=== PATIENT | male | born 1950 | race Caucasian/White ===

== ENCOUNTER 2019-06-03 00:45 | Emergency (ER) | payer OTHER, MEDICARE ==
[~2019-06-03] VITALS: Ht 182.9 cm; Wt 103.4 kg
[~2019-06-03 00:45] MED LIST: Flomax0.4 MG PO
== END 2019-06-03 02:56 | disposition home or self-care (01) ==
LOC: ER 00:45
DX: R33.9 Retention of urine, unspecified (principal); J44.9 Chronic obstructive pulmonary disease, unspecified; F17.200 Nicotine dependence, unspecified, uncomplicated; Z79.899 Other long term (current) drug therapy
CPT/HCPCS: 51702; 99283-25

== ENCOUNTER 2019-12-30 02:14 | Emergency (ER) | payer OTHER, MEDICARE ==
[~2019-12-30] VITALS: Ht 180.3 cm; Wt 95.2 kg
[~2019-12-30 02:14] MED LIST changes: +ALBU90OI INH
== END 2019-12-30 03:50 | disposition home or self-care (01) ==
LOC: ER 02:14
DX: S60.051A Contusion of right little finger without damage to nail, initial encounter (principal); Z87.891 Personal history of nicotine dependence; W19.XXXA Unspecified fall, initial encounter
CPT/HCPCS: 73120; 99283-25

== ENCOUNTER 2020-01-28 22:51 | Emergency (ER) | payer OTHER, MEDICARE ==
[~2020-01-28] VITALS: Ht 185.4 cm; Wt 108.9 kg
== END 2020-01-29 00:15 | disposition home or self-care (01) ==
LOC: ER 22:51
DX: S09.90XA Unspecified injury of head, initial encounter (principal); F10.129 Alcohol abuse with intoxication, unspecified; J44.9 Chronic obstructive pulmonary disease, unspecified; Z87.891 Personal history of nicotine dependence; W01.0XXA Fall on same level from slipping, tripping and stumbling without subsequent striking against object, initial encounter; Y92.029 Unspecified place in mobile home as the place of occurrence of the external cause
CPT/HCPCS: 70450; 72125; 99284-25

== ENCOUNTER 2020-04-28 00:39 | Emergency (ER) | payer OTHER, MEDICARE ==
[~2020-04-28] VITALS: Ht 185.4 cm; Wt 95.2 kg
[2020-04-28 01:06] LABS: Source, Urine Catheter
[2020-04-28 01:08] LABS: Bilirubin, Urine Neg (Neg); Blood, Urine 5+ (Neg); Glucose Qualitative, Urine Neg (Neg); Ketones, Urine Neg (Neg); Leukocyte Esterase, Urine Neg (Neg); Nitrite, Urine Neg (Neg); Protein, Urine Neg (Neg); Urobilinogen, Urine NORM (Normal)
[2020-04-28 01:11] LABS: Appearance, Urine Clear (Clear); Color, Urine Yellow (P-Yellow)
[2020-04-28 01:16] LABS: Bacteria Few /hpf; Squamous Epithelial Cells Not Seen /hpf (Few); White Blood Cells, Urine 0-2 /hpf (0-5)
== END 2020-04-28 02:41 | disposition home or self-care (01) ==
LOC: ER 00:39
PROVIDERS: Emergency Medicine
DX: N13.9 Obstructive and reflux uropathy, unspecified (principal); J44.9 Chronic obstructive pulmonary disease, unspecified; F17.210 Nicotine dependence, cigarettes, uncomplicated
CPT/HCPCS: 51701; 81001; 99283-25

== ENCOUNTER 2020-07-02 19:08 | Emergency (ER) | payer OTHER, MEDICARE ==
[~2020-07-02] VITALS: Ht 182.9 cm; Wt 99.8 kg
== END 2020-07-02 20:09 | disposition home or self-care (01) ==
LOC: ER 19:08
DX: R33.9 Retention of urine, unspecified (principal); J44.9 Chronic obstructive pulmonary disease, unspecified; Z79.899 Other long term (current) drug therapy
CPT/HCPCS: 51702; 51798; 99283-25

== ENCOUNTER 2020-07-06 06:55 | Emergency (ER) | payer OTHER, MEDICARE ==
[~2020-07-06] VITALS: Ht 180.3 cm; Wt 104.3 kg
[2020-07-06] MEDS ORDERED: ALBU90OI INH (07:46)
== END 2020-07-06 07:57 | disposition home or self-care (01) ==
LOC: ER 06:55
DX: Z46.6 Encounter for fitting and adjustment of urinary device (principal); J44.9 Chronic obstructive pulmonary disease, unspecified; Z87.891 Personal history of nicotine dependence
CPT/HCPCS: 99283

== ENCOUNTER 2020-07-28 03:47 | Emergency (ER) | payer OTHER, MEDICARE ==
[~2020-07-28] VITALS: Ht 180.3 cm; Wt 99.8 kg
== END 2020-07-28 05:19 | disposition home or self-care (01) ==
LOC: ER 03:47
DX: R33.9 Retention of urine, unspecified (principal); J44.9 Chronic obstructive pulmonary disease, unspecified; Z79.899 Other long term (current) drug therapy; Z87.891 Personal history of nicotine dependence
CPT/HCPCS: 51702; 99282-25

== ENCOUNTER 2020-07-30 23:34 | Emergency (ER) | payer OTHER, MEDICARE ==
[~2020-07-30] VITALS: Ht 182.9 cm; Wt 104.3 kg
== END 2020-07-31 00:53 | disposition home or self-care (01) ==
LOC: ER 23:34
DX: R33.9 Retention of urine, unspecified (principal)
CPT/HCPCS: 99283

== ENCOUNTER 2020-09-12 23:05 | Emergency (ER) | payer OTHER, MEDICARE ==
[~2020-09-12] VITALS: Ht 180.3 cm; Wt 103.4 kg
[2020-09-13 00:19] LABS: BASOPHILS ABSOLUTE AUTO 0.05 K/mm3 (0.00-0.23); BASOPHILS PERCENT AUTO 1 % (0-2); EOSINOPHILS ABSOLUTE AUTO 0.19 K/mm3 (0.00-0.68); EOSINOPHILS PERCENT AUTO 2 % (0-6); Hematocrit 48.8 % (37.0-53.0); Hemoglobin 16.4 g/dL (13.5-17.5); IMMATURE GRAN ABSOLUTE AUTO 0.08 K/mm3 (0.00-0.10); IMMATURE GRAN PERCENT AUTO 1 % (0-1); LYMPHOCYTES ABSOLUTE AUTO 1.97 K/mm3 (0.84-5.20); LYMPHOCYTES PERCENT AUTO 22 % (21-46); MONOCYTES ABSOLUTE AUTO 1.01 K/mm3 (0.16-1.47); MONOCYTES PERCENT AUTO 11 % (4-13); Mean Corpuscular HGB 30.9 pg (26.0-34.0); Mean Corpuscular HGB Conc 33.6 g/dL (31.5-36.5); Mean Corpuscular Volume 92 fL (80-100); Mean Platelet Volume 10.3 fL (9.1-12.4); NEUTROPHILS ABSOLUTE AUTO 5.53 K/mm3 (1.96-9.15); NEUTROPHILS PERCENT AUTO 63 % (41-73); Platelet Count 234 K/mm3 (150-400); RDW Coefficient Variation 13.2 % (11.7-14.2); RDW Standard Deviation 44.7 fL (35.1-46.3); White Blood Cell Count 8.83 K/mm3 (4.00-11.30)
[2020-09-13 00:33] LABS: Alanine Aminotransfer (ALT/SGP 37 U/L (12-78); Albumin, Blood 3.7 g/dL (3.4-5.0); Albumin/Globulin Ratio 1.1 (0.8-1.8); Alk Phos 99 U/L (50-136); Anion Gap 6 mmol/L (6-16); Aspartate Aminotrans (AST/SGOT 17 U/L (12-37); Bilirubin, Total 0.9 mg/dL (0.1-1.0); Blood Urea Nitrogen 17 mg/dL (8-24); CO2, Blood 24 mmol/L (21-32); Calcium, Blood 8.6 mg/dL (8.5-10.1); Chloride, Blood 111 mmol/L (98-108); Creatinine, Blood 1.21 mg/dL (0.60-1.20); Globulin, Blood 3.5 g/dL (2.2-4.0); Glomerular Filtration Rate >60 (60-); Glucose, Blood 87 mg/dL (70-99); Potassium, Blood 3.4 mmol/L (3.5-5.5); Sodium, Blood 141 mmol/L (136-145); Total Protein, Blood 7.2 g/dL (6.4-8.2)
[2020-09-13] MEDS ORDERED: LOPE2C PO (01:32)
== END 2020-09-13 01:47 | disposition home or self-care (01) ==
LOC: ER 23:05
PROVIDERS: Emergency Medicine
DX: R19.7 Diarrhea, unspecified (principal); J44.9 Chronic obstructive pulmonary disease, unspecified; Z79.899 Other long term (current) drug therapy; Z87.891 Personal history of nicotine dependence
CPT/HCPCS: 36415; 80053; 83690; 85025; 99284; A9270; J7030

== ENCOUNTER 2020-09-15 18:16 | Emergency (ER) | payer OTHER, MEDICARE ==
[~2020-09-15] VITALS: Ht 180.3 cm; Wt 99.8 kg
[~2020-09-15 18:16] MED LIST changes: +LOPE2C PO
[2020-09-15] MEDS ORDERED: HYDCOR2.5C PR ×2 (18:34→18:38)
[2020-09-15] MEDS ORDERED: Triamcinolone A15 G3 TOP (18:41)
== END 2020-09-15 18:45 | disposition home or self-care (01) ==
LOC: ER 18:16
DX: L25.8 Unspecified contact dermatitis due to other agents (principal); J44.9 Chronic obstructive pulmonary disease, unspecified; Z87.891 Personal history of nicotine dependence; Z79.899 Other long term (current) drug therapy
CPT/HCPCS: 99282

== ENCOUNTER 2020-10-30 09:52 | Emergency (ER) | payer OTHER, MEDICARE ==
[~2020-10-30] VITALS: Ht 180.3 cm; Wt 102.1 kg
[~2020-10-30 09:52] MED LIST changes: +HYDCOR2.5C PR; +Triamcinolone A15 G3 TOP
[2020-10-30 11:04] LABS: Source, Urine Catheter
[2020-10-30 11:10] LABS: Appearance, Urine Clear (Clear); Bilirubin, Urine Neg (Neg); Blood, Urine 4+ (Neg); Color, Urine Yellow (P-Yellow); Glucose Qualitative, Urine Neg (Neg); Ketones, Urine 1+ (Neg); Leukocyte Esterase, Urine Neg (Neg); Nitrite, Urine Pos (Neg); Protein, Urine 1+ (Neg); Urobilinogen, Urine NORM (Normal)
[2020-10-30 11:25] LABS: Calcium, Ionized (POC) 1.09 mmol/L (1.10-1.46); Chloride (POC) 106 mmol/L (98-108); Creatinine (POC) 1.2 mg/dL (0.8-1.3); Glucose (ISTAT POC) 85 mg/dL (70-99); Hemoglobin (POC) 17.3 g/dL (13.5-17.5); Sodium (POC) 142 mmol/L (135-148); Total CO2 (POC) 23 mmol/L (21-32)
[2020-10-30 11:28] LABS: Bacteria Mod /hpf; Squamous Epithelial Cells Rare /hpf (Few)
[2020-10-30] MEDS ORDERED: Flomax0.4 MG PO (11:50)
== END 2020-10-30 12:00 | disposition home or self-care (01) ==
LOC: ER 09:52
PROVIDERS: Emergency Medicine
DX: R33.9 Retention of urine, unspecified (principal); J44.9 Chronic obstructive pulmonary disease, unspecified; Z87.891 Personal history of nicotine dependence; Z79.899 Other long term (current) drug therapy
CPT/HCPCS: 36415; 51702; 51798; 80047; 81001; 85014; 87077; 87086; 87186; 99283-25

== ENCOUNTER 2020-11-02 13:16 | Emergency (ER) | payer OTHER, MEDICARE ==
[~2020-11-02] VITALS: Ht 180.3 cm; Wt 102.1 kg
[2020-11-02 14:02] LABS: Source, Urine Catheter
[2020-11-02 14:26] LABS: Appearance, Urine Cloudy (Clear); Bilirubin, Urine Neg (Neg); Blood, Urine 5+ (Neg); Color, Urine Amber (P-Yellow); Glucose Qualitative, Urine Neg (Neg); Ketones, Urine 1+ (Neg); Leukocyte Esterase, Urine 3+ (Neg); Nitrite, Urine Pos (Neg); Protein, Urine 3+ (Neg); Specific Gravity, Urine 1.025 (1.003-1.022); Urobilinogen, Urine NORM (Normal)
[2020-11-02 14:33] LABS: Bacteria Many /hpf; Red Blood Cells, Urine 25-50 /hpf (0-2); Squamous Epithelial Cells Not Seen /hpf (Few)
[2020-11-02] MEDS ORDERED: CEPHALEXIN500 M2 PO (14:33)
[2020-11-02 14:34] LABS: Amorphous Light (0-Heavy); Calcium Oxalate Crystals Few /hpf; Mucus Mod (0-Heavy); Transitional Epithelial Cells Rare /hpf (0-Rare); Uric Acid Crystals Few /hpf; Yeast/Fungi Urine Few /hpf
== END 2020-11-02 14:54 | disposition home or self-care (01) ==
LOC: ER 13:16
PROVIDERS: Physician Assistant
DX: N40.0 Benign prostatic hyperplasia without lower urinary tract symptoms (principal); N39.0 Urinary tract infection, site not specified; J44.9 Chronic obstructive pulmonary disease, unspecified; Z79.899 Other long term (current) drug therapy; Z87.891 Personal history of nicotine dependence
CPT/HCPCS: 81001; 87077; 87086; 87186; 99283

== ENCOUNTER 2021-02-22 21:09 | Observation (INO) | payer OTHER ==
[~2021-02-22] VITALS: Ht 185.4 cm; Wt 98.6 kg
[~2021-02-22 21:09] MED LIST changes: +CEPHALEXIN500 M2 PO
[2021-02-22 21:43] LABS: BASOPHILS ABSOLUTE AUTO 0.02 K/mm3 (0.00-0.23); BASOPHILS PERCENT AUTO 0 % (0-2); EOSINOPHILS PERCENT AUTO 0 % (0-6); Hematocrit 50.6 % (37.0-53.0); Hemoglobin 17.4 g/dL (13.5-17.5); IMMATURE GRAN ABSOLUTE AUTO 0.06 K/mm3 (0.00-0.10); IMMATURE GRAN PERCENT AUTO 1 % (0-1); LYMPHOCYTES ABSOLUTE AUTO 0.84 K/mm3 (0.84-5.20); LYMPHOCYTES PERCENT AUTO 12 % (21-46); MONOCYTES PERCENT AUTO 8 % (4-13); Mean Corpuscular HGB 30.9 pg (26.0-34.0); Mean Corpuscular HGB Conc 34.4 g/dL (31.5-36.5); Mean Corpuscular Volume 90 fL (80-100); Mean Platelet Volume 12.1 fL (9.1-12.4); NEUTROPHILS ABSOLUTE AUTO 5.79 K/mm3 (1.96-9.15); NEUTROPHILS PERCENT AUTO 79 % (41-73); Platelet Count 138 K/mm3 (150-400); RDW Coefficient Variation 13.8 % (11.7-14.2); RDW Standard Deviation 45.9 fL (35.1-46.3); Red Blood Cell Count 5.64 M/mm3 (4.30-5.90); White Blood Cell Count 7.31 K/mm3 (4.00-11.30)
[2021-02-22 22:26] LABS: Albumin, Blood 2.8 g/dL (3.4-5.0); Albumin/Globulin Ratio 0.7 (0.8-1.8); Bun/Creatinine Ratio 17.1 (12.0-20.0); Calcium, Blood 8.6 mg/dL (8.5-10.1); Creatinine, Blood 1.4 mg/dL (0.60-1.20); Globulin, Blood 4.1 g/dL (2.2-4.0); Total Protein, Blood 6.9 g/dL (6.4-8.2); Troponin I 0.028 ng/mL (0.000-0.040)
[2021-02-22 22:50] LABS: Calcium, Ionized (POC) 1.06 mmol/L (1.10-1.46); Chloride (POC) 101 mmol/L (98-108); Creatinine (POC) 1.5 mg/dL (0.8-1.3); Glucose (ISTAT POC) 93 mg/dL (70-99); Hemoglobin (POC) 17.7 g/dL (13.5-17.5); Potassium (POC) 4.2 mmol/L (3.5-5.5); Sodium (POC) 136 mmol/L (135-148); Total CO2 (POC) 25 mmol/L (21-32)
[2021-02-22 23:06] LABS: Magnesium, Blood 2.1 mg/dL (1.6-2.4)
[2021-02-22 23:48] LABS: SARS-Cov-2 (COVID-19) PCR, MMC POSITIVE (NEGATIVE)
[2021-02-23 00:33] LABS: Source, Urine Clean Catch
[2021-02-23 00:37] LABS: Appearance, Urine Clear (Clear); Blood, Urine 4+ (Neg); Color, Urine Amber (P-Yellow); Glucose Qualitative, Urine Neg (Neg); Ketones, Urine 2+ (Neg); Leukocyte Esterase, Urine 1+ (Neg); Nitrite, Urine Neg (Neg); Protein, Urine 4+ (Neg); Specific Gravity, Urine 1.015 (1.003-1.022); Urobilinogen, Urine 2+ (Normal)
[2021-02-23 00:39] LABS: Bilirubin, Urine 1+ (Neg)
[2021-02-23 00:43] LABS: Bacteria Many /hpf; Red Blood Cells, Urine 0-2 /hpf (0-2); Squamous Epithelial Cells Not Seen /hpf (Few); WBC Cast 0-2 /lpf (0)
[2021-02-23 00:48] LABS: U Amphetamine Screen Not Detected; U Barbituate Screen Not Detected; U Benzodiazapine Screen Not Detected; U Buprenorphine Screen Not Detected; U Cannabinoids Screen Not Detected; U Cocaine Screen Not Detected; U Methadone Screen Not Detected; U Methamphetamine Screen Not Detected; U Opiates Screen Not Detected; U Oxycodone Screen Not Detected; U Phencyclidine Screen Not Detected; U Propoxyphene Screen Not Detected
[2021-02-23 00:58] LABS: Free Thyroxine 1.07 ng/dL (0.70-1.60); Thyroid Stimulating Hormone 2.15 uIU/mL (0.360-4.800); Triiodothyronine, Free 1.97 pg/mL (2.18-3.98)
[2021-02-23 01:44] LABS: C-Reactive Protein, High Sens. 26.8 mg/L (0.000-3.000)
[2021-02-23 02:28] LABS: BASOPHILS ABSOLUTE AUTO 0.02 K/mm3 (0.00-0.23); BASOPHILS PERCENT AUTO 0 % (0-2); EOSINOPHILS PERCENT AUTO 0 % (0-6); Hematocrit 49.5 % (37.0-53.0); Hemoglobin 16.7 g/dL (13.5-17.5); IMMATURE GRAN ABSOLUTE AUTO 0.07 K/mm3 (0.00-0.10); IMMATURE GRAN PERCENT AUTO 1 % (0-1); LYMPHOCYTES ABSOLUTE AUTO 0.83 K/mm3 (0.84-5.20); LYMPHOCYTES PERCENT AUTO 10 % (21-46); MONOCYTES ABSOLUTE AUTO 0.63 K/mm3 (0.16-1.47); MONOCYTES PERCENT AUTO 8 % (4-13); Mean Corpuscular HGB 30.8 pg (26.0-34.0); Mean Corpuscular HGB Conc 33.7 g/dL (31.5-36.5); Mean Corpuscular Volume 91 fL (80-100); Mean Platelet Volume 11.3 fL (9.1-12.4); NEUTROPHILS ABSOLUTE AUTO 6.51 K/mm3 (1.96-9.15); NEUTROPHILS PERCENT AUTO 81 % (41-73); Platelet Count 123 K/mm3 (150-400); RDW Coefficient Variation 13.9 % (11.7-14.2); RDW Standard Deviation 47.7 fL (35.1-46.3); Red Blood Cell Count 5.42 M/mm3 (4.30-5.90); White Blood Cell Count 8.06 K/mm3 (4.00-11.30)
[2021-02-23 02:44] LABS: Albumin, Blood 2.7 g/dL (3.4-5.0); Albumin/Globulin Ratio 0.7 (0.8-1.8); Bun/Creatinine Ratio 17.8 (12.0-20.0); Calcium, Blood 8.4 mg/dL (8.5-10.1); Creatinine, Blood 1.46 mg/dL (0.60-1.20); Globulin, Blood 3.8 g/dL (2.2-4.0); Potassium, Blood 3.4 mmol/L (3.5-5.5); Total Protein, Blood 6.5 g/dL (6.4-8.2)
--- NOTE | 2021-02-23 04:58 | NUR ---
PATIENT IS A NEW ADMIT FROM THE ED. SBA TRANSFER FROM [facility] TO BED. AXO X 4 ON 3L O2 NC AND RA BASELINE. PIV INTACT. TELEMETRY PLACED AND TECH REPORTS NSR 73. DENIES CHEST PAIN AND N/V. CARDIOLOGY CONSULTED IN ED. VSS WITH LOW GRADE TEMPERATURE. UNPRODUCTIVE COUGH ON ADMIT. CBG CHECKS X 2 DAILY FOR STEROIDS. PATIENT ORIENTED TO ROOM AND CALL LIGHT SYSTEM. REPORTS LIVES WITH SIGNIFICANT OTHER. CALL LIGHT IN REACH. BED IN LOWEST POSITION. WILL CONTINUE TO MONITOR UNTIL DAY SHIFT NURSE ASSUMES CARE.
--- NOTE | 2021-02-23 19:32 | NUR ---
Alert and oriented x3 , antonette to make needs known. Denies any pain, headache , dizziness or SOB. Used urinal at bedside. Continue on tele monitor , heart at 80.Echodiogram result indicates normal findings.NPO from midnight , no caffeine after dinner. One person assist with ADLs. Continue on 3L N/c , no respirtory distress noted. vital signs are stable. Cardiac consult was made and Dr Guadalupe have seen the patient this morning for ventricular tachy. Possible stress test and MPI in AM 02/24/21. Continue to monitor.
[2021-02-24 04:53] LABS: Hematocrit 49.7 % (37.0-53.0); Hemoglobin 16.8 g/dL (13.5-17.5); Mean Corpuscular HGB 30.5 pg (26.0-34.0); Mean Corpuscular HGB Conc 33.8 g/dL (31.5-36.5); Mean Corpuscular Volume 90 fL (80-100); Mean Platelet Volume 11.8 fL (9.1-12.4); Platelet Count 146 K/mm3 (150-400); RDW Coefficient Variation 13.9 % (11.7-14.2); RDW Standard Deviation 46.7 fL (35.1-46.3); Red Blood Cell Count 5.51 M/mm3 (4.30-5.90); White Blood Cell Count 8.82 K/mm3 (4.00-11.30)
[2021-02-24 05:15] LABS: Anion Gap 8 mmol/L (6-16); Blood Urea Nitrogen 31 mg/dL (8-24); Bun/Creatinine Ratio 27.2 (12.0-20.0); CO2, Blood 26 mmol/L (21-32); Calcium, Blood 8.9 mg/dL (8.5-10.1); Chloride, Blood 104 mmol/L (98-108); Creatinine, Blood 1.14 mg/dL (0.60-1.20); Glomerular Filtration Rate >60 (60-); Glucose, Blood 98 mg/dL (70-99); Magnesium, Blood 2.6 mg/dL (1.6-2.4); Potassium, Blood 3.5 mmol/L (3.5-5.5); Sodium, Blood 138 mmol/L (136-145)
--- NOTE | 2021-02-24 18:39 | NUR ---
Alert and oriented x3 , Continue on Remdesivir for COVID-19 PNA. C/O SOB , oxygen was removed at the time , oxygen was put at 4 L N/C , SP02 was 91% Denies headache , dizziness and chest pain. Vital signs are stable . continue on tele monitor with sinus rhythm at 90. Was NPO for stress test which came with no evidence of ischemia. One person assist with ADLS. Continue to monitor.
--- NOTE | 2021-02-25 05:43 | NUR ---
PATIENT ALERT AND RESPOSIVE. PATIENT IS ORIGINALLY ADMITTED FOR ARRYTHMIA WITH DYSPNEA, SOB FOR 2 WEEKS. PATIENT DENIES SOB OR NAUSEA AND VOMITING. PATIENT COMPLAINED OF HEADACH AND WAS MEDICATED WITH TYLENOL 650MG WITH GOOD EFFECT. PATIENT WAS ABLE TO USE THE BEDSIDE URINAL INDEPENDENTLY, VOIDED 400CC. PATIENT SLEPT WITH NO ISSUES. WILL CONTINUE TO MONITOR.
[2021-02-25] MEDS ORDERED: ASPI81CH PO (16:21)
[2021-02-25] MEDS ORDERED: Vitamin D1000 UNI1 PO (16:21)
[2021-02-25] MEDS ORDERED: DEXA6 PO (16:22)
[2021-02-25] MEDS ORDERED: XARELTO20 MG PO (16:22)
--- NOTE | 2021-02-25 17:00 | NUR ---
REVIEW D'C WITH PATIENT . AWARE NEEDS TO MAKE F/U APPT WITH PCP AT [facility] WITHIN ONE WEEK AND F/U W/CARDIOLOGY WITHIN 1 MONTH. REVIEW MEDS AND AWARE NEEDS TO START TOMORROW. AWARE IF FEELING WORSE TO COME BACK TO E.R. ANSWER ALL QUESTIONS. VERBALIZES UNDERSTANDING. IN W/C WITH [facility] OXYGEN TANK. AWARE NEEDS TO CALL [facility] TO GET OXYGEN AT HOME. [facility] RIDE HOME.
== END 2021-02-25 17:32 | disposition home health service (06) ==
LOC: ER 21:09 → MEDS 21:10
PROVIDERS: Emergency Medicine; Internal Medicine; ADMIT Hospitalist
DX: U07.1 COVID-19 (principal); J96.01 Acute respiratory failure with hypoxia; I48.0 Paroxysmal atrial fibrillation; I49.5 Sick sinus syndrome; N17.9 Acute kidney failure, unspecified; E66.9 Obesity, unspecified; N40.0 Benign prostatic hyperplasia without lower urinary tract symptoms; I47.2 Ventricular tachycardia; I44.7 Left bundle-branch block, unspecified; J44.9 Chronic obstructive pulmonary disease, unspecified; Z87.891 Personal history of nicotine dependence; Z96.642 Presence of left artificial hip joint; Z68.31 Body mass index [BMI] 31.0-31.9, adult
CPT/HCPCS: 36415; 71260; 78452; 80047; 80048; 80053; 81001; 82728; 82947; 83690; 83735; 84439; 84443; 84481; 84484; 85014; 85025; 85027; 85379; 86141; 87086; 93005; 93010; 93017; 93306; 94762; 96365; 96367; 99285-25; A9270; A9500; J0282; J0706; J1100; J1650; J2785; J3475; Q9967; U0004

== ENCOUNTER 2021-02-26 15:26 | Inpatient (IN) | payer OTHER ==
[~2021-02-26] VITALS: Ht 185.4 cm; Wt 101.2 kg
[~2021-02-26 15:26] MED LIST changes: +ASPI81CH PO; +DEXA6 PO; +Vitamin D1000 UNI1 PO; +XARELTO20 MG PO
[2021-02-26 17:00] LABS: Hematocrit 50.1 % (37.0-53.0); Mean Corpuscular HGB 30.2 pg (26.0-34.0); Mean Corpuscular HGB Conc 33.9 g/dL (31.5-36.5); Mean Corpuscular Volume 89 fL (80-100); Mean Platelet Volume 10.9 fL (9.1-12.4); Platelet Count 289 K/mm3 (150-400); RDW Standard Deviation 46.3 fL (35.1-46.3); Red Blood Cell Count 5.62 M/mm3 (4.30-5.90); White Blood Cell Count 8.52 K/mm3 (4.00-11.30)
[2021-02-26 17:18] LABS: Anion Gap 9 mmol/L (6-16); Blood Urea Nitrogen 35 mg/dL (8-24); Bun/Creatinine Ratio 34.7 (12.0-20.0); CO2, Blood 27 mmol/L (21-32); Calcium, Blood 8.9 mg/dL (8.5-10.1); Chloride, Blood 102 mmol/L (98-108); Creatinine, Blood 1.01 mg/dL (0.60-1.20); Glomerular Filtration Rate >60 (60-); Glucose, Blood 97 mg/dL (70-99); Potassium, Blood 3.7 mmol/L (3.5-5.5); Sodium, Blood 138 mmol/L (136-145)
[2021-02-26 17:26] LABS: BASOPHILS PERCENT MAN 0 % (0-2); EOSINOPHILS PERCENT MAN 0 % (0-6); LYMPHOCYTES % ATYPICAL MANUAL 3 % (0-0); LYMPHOCYTES ABSOLUTE MAN 0.68 K/mm3 (0.84-5.20); LYMPHOCYTES PERCENT MAN 5 % (21-46); MONOCYTES ABSOLUTE MAN 0.08 K/mm3 (0.16-1.47); MONOCYTES PERCENT MAN 1 % (4-13); NEUTROPHILS ABSOLUTE MAN 7.49 K/mm3 (1.96-9.15); PLASMA CELL ABSOLUTE MAN 0.25 K/mm3 (0.00-0.00); PLASMA CELLS PERCENT MAN 3 % (0-0); SEG NEUTROPHILS PERCENT MAN 88 % (41-73); TOTAL CELLS COUNTED 100
[2021-02-26 18:21] LABS: Albumin, Blood 2.1 g/dL (3.4-5.0); Albumin/Globulin Ratio 0.5 (0.8-1.8); Bilirubin, Direct 0.1 mg/dL (0.0-0.3); Bilirubin, Total 1.1 mg/dL (0.1-1.0); Globulin, Blood 4.5 g/dL (2.2-4.0); Total Protein, Blood 6.6 g/dL (6.4-8.2)
--- NOTE | 2021-02-27 01:42 | NUR ---
ADMISSION: RECEIVED PT FROM ER VIA STRETCHER AAOX3. SOB ON EXERTION. O2 4 L VIA NC IN PLACE. PT C/O OF WEAKNESS. SR ON TELE. SAT 93%. ORIENTED PT TO ROOM, CALL LIGHT, AND SURROUNDINGS. ATE SNACK AND TOLERATED WELL. VSS. WILL CONTINUE TO MONITOR.
--- NOTE | 2021-02-27 02:45 | NUR ---
UPDATED DR. SPICER ON PT'S ABG RESULTS, ALSO INFORMED OF RT'S RECOMMENDATION TO KEEP PT ON 100% FIO2 ON AIRVO. NO NEW ORDERS RECEIVED. CONTINUE TO MONITOR.
--- NOTE | 2021-02-27 04:18 | NUR ---
PT IS AAOX3. SR ON TELE. SAT 92% ON 4L NC ON ARRIVAL TO FLOOR. REMAINS SOB ON EXERTION. DESAT TO 86 DURING SLEEP. O2 INCREASED TO 5L. ENCOURAGED DEEP BREATHING AND REPOSITIONING. RESTING IN BED WITHOUT DISTRESS. SAT @ 93%; HR 76 ON MONITOR.
[2021-02-27 05:11] LABS: BASOPHILS ABSOLUTE AUTO 0.06 K/mm3 (0.00-0.23); BASOPHILS PERCENT AUTO 1 % (0-2); EOSINOPHILS ABSOLUTE AUTO 0.02 K/mm3 (0.00-0.68); EOSINOPHILS PERCENT AUTO 0 % (0-6); Hematocrit 48.4 % (37.0-53.0); Hemoglobin 15.9 g/dL (13.5-17.5); Mean Corpuscular HGB 30.3 pg (26.0-34.0); Mean Corpuscular HGB Conc 32.9 g/dL (31.5-36.5); Mean Corpuscular Volume 92 fL (80-100); Mean Platelet Volume 10.8 fL (9.1-12.4); Platelet Count 249 K/mm3 (150-400); RDW Coefficient Variation 14.1 % (11.7-14.2); RDW Standard Deviation 48.1 fL (35.1-46.3); Red Blood Cell Count 5.24 M/mm3 (4.30-5.90); White Blood Cell Count 6.82 K/mm3 (4.00-11.30)
[2021-02-27 05:15] LABS: IMMATURE GRAN ABSOLUTE AUTO 0.12 K/mm3 (0.00-0.10); IMMATURE GRAN PERCENT AUTO 2 % (0-1); LYMPHOCYTES ABSOLUTE AUTO 0.46 K/mm3 (0.84-5.20); LYMPHOCYTES PERCENT AUTO 7 % (21-46); MONOCYTES ABSOLUTE AUTO 0.28 K/mm3 (0.16-1.47); MONOCYTES PERCENT AUTO 4 % (4-13); NEUTROPHILS ABSOLUTE AUTO 5.88 K/mm3 (1.96-9.15); NEUTROPHILS PERCENT AUTO 86 % (41-73)
[2021-02-27 05:33] LABS: BAND PERCENT MAN 1 % (0-8); BASOPHILS PERCENT MAN 0 % (0-2); EOSINOPHILS PERCENT MAN 0 % (0-6); LYMPHOCYTES ABSOLUTE MAN 0.27 K/mm3 (0.84-5.20); LYMPHOCYTES PERCENT MAN 4 % (21-46); MONOCYTES ABSOLUTE MAN 0.34 K/mm3 (0.16-1.47); MONOCYTES PERCENT MAN 5 % (4-13); MYELOCYTE ABSOLUTE MAN 0.06 K/mm3 (0.00-0.00); MYELOCYTE PERCENT MAN 1 % (0-0); NEUTROPHILS ABSOLUTE MAN 6.06 K/mm3 (1.96-9.15); PLASMA CELL ABSOLUTE MAN 0.06 K/mm3 (0.00-0.00); PLASMA CELLS PERCENT MAN 1 % (0-0); SEG NEUTROPHILS PERCENT MAN 88 % (41-73); TOTAL CELLS COUNTED 100
[2021-02-27 05:59] LABS: Alanine Aminotransfer (ALT/SGP 46 U/L (12-78); Albumin, Blood 1.8 g/dL (3.4-5.0); Albumin/Globulin Ratio 0.4 (0.8-1.8); Alk Phos 76 U/L (50-136); Anion Gap 10 mmol/L (6-16); Aspartate Aminotrans (AST/SGOT 59 U/L (12-37); Bilirubin, Total 0.9 mg/dL (0.1-1.0); Blood Urea Nitrogen 30 mg/dL (8-24); Bun/Creatinine Ratio 35.2 (12.0-20.0); CO2, Blood 22 mmol/L (21-32); Calcium, Blood 8.4 mg/dL (8.5-10.1); Chloride, Blood 106 mmol/L (98-108); Creatinine, Blood 0.85 mg/dL (0.60-1.20); Globulin, Blood 4.3 g/dL (2.2-4.0); Glomerular Filtration Rate >60 (60-); Glucose, Blood 129 mg/dL (70-99); Potassium, Blood 4.2 mmol/L (3.5-5.5); Sodium, Blood 138 mmol/L (136-145); Total Protein, Blood 6.1 g/dL (6.4-8.2)
--- NOTE | 2021-02-27 17:52 | NUR ---
SHIFT SUMMARY PT IS UP IN BED ON 5L NASAL CANNULA WITH 10L NON-REBREATHER NEEDED OVER NC FOR MOUTH BREATHING. SATS ARE 93% WHEN NOT EATING. PT HAS SOME DESATTING WITH EATING AND ACTIVITY THAT IS MANAGED WITH USE ON NON-REBREATHER. PT HAS HAD NO COMPLAINTS TODAY AND NO ACUTE CHANGES. WILL CONTINUE TO MONITOR.
--- NOTE | 2021-02-27 19:05 | NUR ---
ASSUMED CARE RECEIVED REPORT FROM SHABANA REED. PT RESTING, IN NAD. NO ACUTE CONCERNS ASSESSED AT THIS TIME. CALL LIGHT, POSSESSIONS IN REACH, BED IN LOW AND LOCKED POSITION.
--- NOTE | 2021-02-27 23:24 | NUR ---
SPOKE TO DR. CORTES REGARDING PT'S INCREASED O2 NEEDS. ORDERS RECEIVED. CONTINUE TO MONITOR.
--- NOTE | 2021-02-28 02:40 | NUR ---
DR. SPICER INFORMED OF PT'S INCREASED ANXIETY, AND INCREASING SOB ON EXERTION. ORDERS RECEIVED. WILL UPDATE PROVIDER WITH ABG RESULTS WHEN AVAILABLE.
[2021-02-28 02:51] LABS: PCO2 Arterial 31.2 mmHg (35-45); PO2 Arterial 70.7 mmHg (80-100); pH Blood Arterial 7.51 (7.35-7.45)
--- NOTE | 2021-02-28 03:10 | NUR ---
UPDATED DR. SPICER ON PT'S ABG RESULTS. NO NEW ORDERS RECEIVED.
--- NOTE | 2021-02-28 04:43 | NUR ---
DR. SPICER NOTIFIED OF PT'S CONTINUED ANXIETY, CONTINUED REMOVAL OF AIRVO AND PICKING AT NICOLE CATHETER. ORDERS RECEIVED AND PT PLACED ON REMOTE CAMERA MONITORING.
--- NOTE | 2021-02-28 07:24 | NUR ---
SHIFT SUMMARY PT APPEARS TO BE RESTING COMFORTABLY, O2 SATS AVERAGING IN THE MID 90'S. PT APPEARED RESTLESS T/O NIGHT, STATING "I CAN'T DO THIS." PROVIDED REASSURANCE AND ACTIVE LISTENING; MEDICATED FOR ANXIETY PER ORDERS. PT APPEARS MORE AT EASE AT THIS TIME. NO OTHER ACUTE CONCERNS NOTED CURRENTLY. NO ACUTE NEEDS ASSESSED. VS REVIEWED, PT FEBRILE, TREATED PER EMAR WITH GOOD EFFECT; OTHER VS WNL. NO ACUTE NEEDS ASSESSED AT THIS TIME. CALL LIGHT, POSSESSIONS IN REACH. RESTRAINTS IN PLACE.
[2021-02-28 07:46] LABS: BASOPHILS ABSOLUTE AUTO 0.05 K/mm3 (0.00-0.23); BASOPHILS PERCENT AUTO 1 % (0-2); EOSINOPHILS PERCENT AUTO 0 % (0-6); Hematocrit 44.2 % (37.0-53.0); Hemoglobin 14.9 g/dL (13.5-17.5); IMMATURE GRAN ABSOLUTE AUTO 0.32 K/mm3 (0.00-0.10); IMMATURE GRAN PERCENT AUTO 4 % (0-1); LYMPHOCYTES ABSOLUTE AUTO 0.32 K/mm3 (0.84-5.20); LYMPHOCYTES PERCENT AUTO 4 % (21-46); MONOCYTES ABSOLUTE AUTO 0.18 K/mm3 (0.16-1.47); MONOCYTES PERCENT AUTO 2 % (4-13); Mean Corpuscular HGB 30.3 pg (26.0-34.0); Mean Corpuscular HGB Conc 33.7 g/dL (31.5-36.5); Mean Corpuscular Volume 90 fL (80-100); Mean Platelet Volume 10.7 fL (9.1-12.4); NEUTROPHILS ABSOLUTE AUTO 7.75 K/mm3 (1.96-9.15); NEUTROPHILS PERCENT AUTO 90 % (41-73); Platelet Count 286 K/mm3 (150-400); RDW Coefficient Variation 14.1 % (11.7-14.2); RDW Standard Deviation 46.8 fL (35.1-46.3); Red Blood Cell Count 4.92 M/mm3 (4.30-5.90); White Blood Cell Count 8.62 K/mm3 (4.00-11.30)
[2021-02-28 08:05] LABS: Magnesium, Blood 2.5 mg/dL (1.6-2.4)
[2021-02-28 08:06] LABS: Albumin, Blood 1.8 g/dL (3.4-5.0); Albumin/Globulin Ratio 0.4 (0.8-1.8); Bilirubin, Total 1.6 mg/dL (0.1-1.0); Bun/Creatinine Ratio 23.6 (12.0-20.0); Calcium, Blood 8.7 mg/dL (8.5-10.1); Creatinine, Blood 1.23 mg/dL (0.60-1.20); Globulin, Blood 4.3 g/dL (2.2-4.0); Phosphorus, Blood 1.5 mg/dL (2.5-4.9); Potassium, Blood 3.8 mmol/L (3.5-5.5); Total Protein, Blood 6.1 g/dL (6.4-8.2)
[2021-02-28 08:27] LABS: BAND PERCENT MAN 7 % (0-8); BASOPHILS PERCENT MAN 0 % (0-2); EOSINOPHILS PERCENT MAN 0 % (0-6); LYMPHOCYTES ABSOLUTE MAN 0.25 K/mm3 (0.84-5.20); LYMPHOCYTES PERCENT MAN 3 % (21-46); MONOCYTES PERCENT MAN 0 % (4-13); MYELOCYTE ABSOLUTE MAN 0.17 K/mm3 (0.00-0.00); MYELOCYTE PERCENT MAN 2 % (0-0); NEUTROPHILS ABSOLUTE MAN 8.18 K/mm3 (1.96-9.15); SEG NEUTROPHILS PERCENT MAN 88 % (41-73); TOTAL CELLS COUNTED 100
[2021-02-28 17:54] LABS: Hematocrit 44.1 % (37.0-53.0); Hemoglobin 14.4 g/dL (13.5-17.5)
--- NOTE | 2021-02-28 18:42 | NUR ---
SHIFT SUMMARY PT ON BIPAP 8L AT 60% 02. PT AHS BEEN STABLE ON BIPAP FOR MOST OF THE SHIFT. OCCASIONALLY WILL PANIC AND TRY TO PULL IT OFF. MUST BE ENCOURAGED TO KEEP IT ON. PT HAS HAD BLOOD IN URINE FOR MOST OF THE DAY AND BEGAN RETAINING. UPON BLADDER SCANNING HE HAD 350 IN HIS BLADDER. THE OLD CATHETER WAS TOO CLOGGED WITH CLOTS TO BE USED SO IT WAS DC'D. PT THEM CONTINUES TO BLEED FROM URETHRA FOR NEXT 45 MINS- HR SOAKING A BRIEF, MANY WIPES, AND AN INCONTINENCE PAD WITH BLOOD. DR WAS CONSULTED AND ORDERED H+H AND IRRIGATION WAS ORDERED. AFTER MUCH STRUGGLE WITH CLOTTING CLEAR URINE WAS OBTAINED. PT IS TO BE TRANSFERRED [place] TOMORROW IS HE CONTINUES TO REMAIN STABLE. WILL CONTINUE TO MONITOR.
--- NOTE | 2021-02-28 19:27 | NUR ---
ATTEMPTED TO PLACE CATHETER FOR CONTINOUS BLADDER IRRIGATION USING A 18F [address], BUT DESPITE MULTIPLE ATTEMPTS OF FLUSHING TO REMOVE CLOTS CATHETER WOULD NOT FLOW. SPD CALLED TO GET A LARGER 3 WAY TO ATTEMPT AGAIN.
[2021-02-28 21:22] LABS: Hematocrit 42.5 % (37.0-53.0); Hemoglobin 13.9 g/dL (13.5-17.5)
--- NOTE | 2021-02-28 22:42 | NUR ---
[address] #22 srivastava cath for CBI. Difficult to place irrigated multiple times manually 30ml NS in balloon . draining with cbi wide open
--- NOTE | 2021-02-28 22:47 | NUR ---
transfer report to Meera RN in ICU on Covid 19 positive PT with resp failure being transferred due to need for sedation to facilitate maintaining adquate oxygenation. He is on cpap repeatedly removed & despite medication for agitation he required a IV haldol to transfer to ICU. Has multiple staff at bedside currently RT & RN sat 75 on 100% oxygen . # [address] 2100 for bladder obstruction need for CBI. PT has repeatedly tried to remove srivastava cath. Wrist restaints placed for pt attempting to remove medical equipment. PT heart rate currently 139 after 5 mg iv lopressor. Transferring to ICU room 6 when PT calm enough to move. IV haldol 3 mg was given. 2 to 3 to one care all shift since 1914 due to bladder obstruction resp failure fall risk aggitation. DR Pizarro gave order for ICU transfer.
--- NOTE | 2021-02-28 22:56 | NUR ---
CBI beganafter [address]ava placed.
--- NOTE | 2021-02-28 23:06 | NUR ---
pt sent to ICU 6 3 persons accompany with leia schulte. personal belonging sent with PT.
[2021-03-01 06:12] LABS: Hemoglobin 12.9 g/dL (13.5-17.5); Mean Corpuscular HGB 30.7 pg (26.0-34.0); Mean Corpuscular HGB Conc 33.1 g/dL (31.5-36.5); Mean Corpuscular Volume 93 fL (80-100); Mean Platelet Volume 11.7 fL (9.1-12.4); Platelet Count 283 K/mm3 (150-400); RDW Coefficient Variation 14.6 % (11.7-14.2); RDW Standard Deviation 49.8 fL (35.1-46.3)
[2021-03-01 06:27] LABS: White Blood Cell Count 14.82 K/mm3 (4.00-11.30)
[2021-03-01 06:30] LABS: Albumin, Blood 1.6 g/dL (3.4-5.0); Albumin/Globulin Ratio 0.4 (0.8-1.8); Bilirubin, Total 1.3 mg/dL (0.1-1.0); Bun/Creatinine Ratio 23.5 (12.0-20.0); Calcium, Blood 7.8 mg/dL (8.5-10.1); Creatinine, Blood 1.96 mg/dL (0.60-1.20); Globulin, Blood 4.5 g/dL (2.2-4.0); Magnesium, Blood 2.6 mg/dL (1.6-2.4); Potassium, Blood 5.1 mmol/L (3.5-5.5); Total Protein, Blood 6.1 g/dL (6.4-8.2)
--- NOTE | 2021-03-01 06:39 | NUR ---
Received patient from [facility] at about 2315. He was on high flow, 100% but very agitated, attemped several times to climb out of bed and taking off the high flow. He appeared confused. Very pale in color and cool to touch. His saturation was in the 60's. MD at the bedside and patient was then intubated. Levophed, drip was started. Patient remained hyperventilating and order for propofol, Versed and prescedex drips were given. patient was going through CBI before been admitted to this unit. Patient's has his srivastava in place and no sign of blood was noted. Also Right IJ central line was also inserted. Will continue to monitor.
[2021-03-01 06:49] LABS: Phosphorus, Blood 4.8 mg/dL (2.5-4.9)
[2021-03-01 07:25] LABS: BAND PERCENT MAN 6 % (0-8); BASOPHILS PERCENT MAN 0 % (0-2); EOSINOPHILS PERCENT MAN 0 % (0-6); LYMPHOCYTES ABSOLUTE MAN 0.74 K/mm3 (0.84-5.20); LYMPHOCYTES PERCENT MAN 5 % (21-46); METAMYELOCYTE ABSOLUTE MAN 0.29 K/mm3 (0.00-0.00); METAMYELOCYTE PERCENT MAN 2 % (0-0); MONOCYTES PERCENT MAN 0 % (4-13); MYELOCYTE ABSOLUTE MAN 0.44 K/mm3 (0.00-0.00); MYELOCYTE PERCENT MAN 3 % (0-0); NEUTROPHILS ABSOLUTE MAN 13.33 K/mm3 (1.96-9.15); SEG NEUTROPHILS PERCENT MAN 84 % (41-73); TOTAL CELLS COUNTED 100
[2021-03-01 09:43] LABS: Hematocrit 44.1 % (37.0-53.0); Hemoglobin 14.5 g/dL (13.5-17.5)
--- NOTE | 2021-03-01 17:29 | NUR ---
SHIFT SUMMARY PT DOING WELL THIS SHIFT. PT VENT SETTINGS WEANED DOWN TO AC 18, TV 450, PEEP 10, FIO2 50%. PT WITH SCANT SECRETIONS THIS SHIFT. COUGH AND GAG NOTED. PT FURROWS BROW TO NOXIOUS STIMULI. PT SEDATED WITH PROPOFOL, PRECEDEX, AND VERSED. SEE FLOWSHEET FOR TITRATIONS. LEVOPHED HAS BEEN WEANED FROM 20 MCG/MIN AT START OF SHIFT TO OFF AT THIS TIME. VITAL SIGNS HAVE REMAINED STABLE. NS INFUSING AT 200 ML/HR. NICOLE REMAINS IN PLACE WITH GOOD AMOUNT OF LIGHT PINK/YELLOW OUTPUT THIS SHIFT. OGT REMAINS IN PLACE, TF STARTED AT 25 ML/HR. CENTRAL LINE TO RIJ C/D/I. SBW RESTRAINTS REMAIN IN PLACE. WILL CONTINUE TO MONITOR AND REPORT OFF TO ONCOMING RN.
--- NOTE | 2021-03-01 21:27 | NUR ---
Assumed care for patient at 1900. Vented and on sedation. Scant secretion but patient has strong cough. Mouth care given. Vss.
[2021-03-02 04:38] LABS: Hematocrit 31.7 % (37.0-53.0); Hemoglobin 10.3 g/dL (13.5-17.5); Mean Corpuscular HGB 31.3 pg (26.0-34.0); Mean Corpuscular HGB Conc 32.5 g/dL (31.5-36.5); Mean Corpuscular Volume 96 fL (80-100); Mean Platelet Volume 11.6 fL (9.1-12.4); Platelet Count 164 K/mm3 (150-400); RDW Coefficient Variation 14.6 % (11.7-14.2); RDW Standard Deviation 52.5 fL (35.1-46.3); Red Blood Cell Count 3.29 M/mm3 (4.30-5.90); White Blood Cell Count 5.41 K/mm3 (4.00-11.30)
[2021-03-02 04:58] LABS: Albumin, Blood 1.7 g/dL (3.4-5.0); Albumin/Globulin Ratio 0.5 (0.8-1.8); Bilirubin, Total 0.7 mg/dL (0.1-1.0); Bun/Creatinine Ratio 27.6 (12.0-20.0); Calcium, Blood 7.9 mg/dL (8.5-10.1); Creatinine, Blood 1.34 mg/dL (0.60-1.20); Globulin, Blood 3.5 g/dL (2.2-4.0); Magnesium, Blood 3.3 mg/dL (1.6-2.4); Phosphorus, Blood 3.2 mg/dL (2.5-4.9); Potassium, Blood 4.9 mmol/L (3.5-5.5); Total Protein, Blood 5.2 g/dL (6.4-8.2)
[2021-03-02 05:01] LABS: BAND PERCENT MAN 5 % (0-8); BASOPHILS PERCENT MAN 0 % (0-2); EOSINOPHILS PERCENT MAN 0 % (0-6); LYMPHOCYTES ABSOLUTE MAN 0.54 K/mm3 (0.84-5.20); LYMPHOCYTES PERCENT MAN 10 % (21-46); METAMYELOCYTE ABSOLUTE MAN 0.05 K/mm3 (0.00-0.00); METAMYELOCYTE PERCENT MAN 1 % (0-0); MONOCYTES ABSOLUTE MAN 0.32 K/mm3 (0.16-1.47); MONOCYTES PERCENT MAN 6 % (4-13); MYELOCYTE PERCENT MAN 2 % (0-0); NEUTROPHILS ABSOLUTE MAN 4.38 K/mm3 (1.96-9.15); SEG NEUTROPHILS PERCENT MAN 76 % (41-73); TOTAL CELLS COUNTED 100
--- NOTE | 2021-03-02 06:27 | NUR ---
No acute clinical changes. Patient remains vented and sedated. Scant secretion from ETT. He tolerated the tube feed. No ditress noted. Repositioned [id number].
--- NOTE | 2021-03-02 08:55 | NUR ---
PT SEDATED ON PROP AT 60, PRECEDEX 0.7, VERSED AT 2. PERRLA, RASS -3. ATTEMPTED TO WEAN DOWN VERSED THIS AM, BUT PT BEGINS TO HYPERVENITLATE AND DESAT. ETT SIZE 8, VENT SETTINGS AC 18, 450, 10, 50%. LUNGS DIM, NON PRODUCTIVE COUGH. OGT PLACEMENT CONFIRMED, TF AT GOAL OF 25ML/HR. FC PATENT, DRAINING ABBE URINE, NO CLOTS OBSERVED. PLAN TO CONTINUE TO ATTEMPT TO WEAN DOWN SEDATION TODAY.
--- NOTE | 2021-03-02 12:31 | NUR ---
PT TO TRANSFER TO [facility] HE IS A [place] PT. PT HAS BEEN WEANED OFF VERSED GTT. PROP REMAINS AT 60, PRECEDEX 0.7, RASS -3, PERRLA SIZE 2, COUGH/GAG PRESENT. VENT SETTINGS REMAIN AC 18, 450, 10, 50. TF HELD AT [address]ER[address] OGT IN [address]. FC INTACT AND PATENT. I/OS TALLIED BEFORE PT TRANSFERRED OUT. CALLED [facility] AND SPOKE WITH ICU TUNNELING MACHINE OPERATOR WHO TOOK REPORT. [facility] ETA 1235. INFORMED MD, AND RECEIVING TUNNELING MACHINE OPERATOR AT [place] OF PT'S COMPLICATED SOCIAL SITUATION HIS IS IN A FACILITY S/P COVID, AND HIS STEP DTR IS THE ONLY PERSON TO BE AN ADVOCATE FOR HIM (IN HER WORDS), BUT SHE IS NOT LISTED SUCH.
--- NOTE | 2021-03-02 13:03 | NUR ---
PT TRANSPORTING TO [place] IN [facility] HAS TAKEN PT ON GULidiaNEY, VENT, AND WITH GTTS AT 1305. [facility] CALLED AND UPDATED ON PT DEPARTURE.
== END 2021-03-02 13:05 | DRG 208 ==
LOC: ER 15:26 → MEDS 15:27 → ICUE 02-27 18:08 → MEDS 02-27 18:09 → ICUE 02-28 22:25
PROVIDERS: Family Medicine; Student in an Organized Health Care Education/Training Program; ADMIT Internal Medicine
PROC: 5A1945Z Respiratory Ventilation, 24-96 Consecutive Hours (ICD-10-PCS; principal; 2021-02-27)
PROC: 3E0333Z Introduction of Anti-inflammatory into Peripheral Vein, Percutaneous Approach (ICD-10-PCS; 2021-02-27)
PROC: 8E0ZXY6 Isolation (ICD-10-PCS; 2021-02-27)
PROC: 0BH17EZ Insertion of Endotracheal Airway into Trachea, Via Natural or Artificial Opening (ICD-10-PCS; 2021-03-01)
PROC: 5A09357 Assistance with Respiratory Ventilation, Less than 24 Consecutive Hours, Continuous Positive Airway Pressure (ICD-10-PCS; 2021-03-01)
PROC: 02HV33Z Insertion of Infusion Device into Superior Vena Cava, Percutaneous Approach (ICD-10-PCS; 2021-03-01)
PROC: 3E043XZ Introduction of Vasopressor into Central Vein, Percutaneous Approach (ICD-10-PCS; 2021-03-01)
DX: U07.1 COVID-19 (principal); J12.82 Pneumonia due to coronavirus disease 2019; J96.01 Acute respiratory failure with hypoxia; A41.89 Other specified sepsis; R65.21 Severe sepsis with septic shock; J44.0 Chronic obstructive pulmonary disease with (acute) lower respiratory infection; N17.9 Acute kidney failure, unspecified; R73.9 Hyperglycemia, unspecified; R31.9 Hematuria, unspecified; Z78.1 Physical restraint status; R74.01 Elevation of levels of liver transaminase levels; R33.9 Retention of urine, unspecified; I48.0 Paroxysmal atrial fibrillation; E86.0 Dehydration; Z96.642 Presence of left artificial hip joint; Z79.82 Long term (current) use of aspirin; Z79.899 Other long term (current) drug therapy; Z98.890 Other specified postprocedural states; Z87.891 Personal history of nicotine dependence
CPT/HCPCS: 31500; 36415; 36556; 36600; 51700; 51703; 71045; 80048; 80053; 80076; 82803; 82947; 83605; 83735; 83880; 84100; 85014; 85018; 85025; 87040; 87070; 87077; 87186; 87205; 93005; 93010; 94002; 94003; 94640; 94660; 94762; 96374; 97110; 97161; 97165; 97530; 99285-25; A9270; C1751; G0378; J0330; J1100; J1630; J1644; J2060; J2250; J2543; J2704; J2920; J3370; J7030; J7050; J7060; P9046